=== PATIENT | female | born 1940 | race Caucasian/White ===

== ENCOUNTER 2017-02-16 08:54 | Outpatient (CLI) | payer MEDICARE, OTHER ==
--- NOTE | 2017-02-16 11:53 | CT ---
CT CHEST WITH IV CONTRAST: HISTORY: Renal cell carcinoma. Evaluate for metastatic disease. Restaging. COMPARISON: 10/25/2015 and 01/29/2017 FINDINGS: The lungs remain somewhat hyperinflated. Pleural scarring at the right apex is similar in appearanc e to the previous exam. There is calcification of the arterial structures. No focal parenchymal summer ng mass, pleural fluid, or mediastinal adenopathy is evident. A small hiatal hernia is apparent on the current study. A right retroperitoneal mass is partially visualized, better detailed on recent CT abdomen exam. IMPRESSION: 1. Stable CT appearance of the chest without evidence of thoracic metastatic disease. 2. Atherosclerosis. POS: [facility]
[2017-02-16] MEDS ORDERED: Iopamidol 370 76% 100 ML VIAL ONE (14:07)
--- NOTE | 2017-02-16 14:25 | NM ---
WHOLE BODY BONE SCAN: COMPARISON: None. HISTORY: Malignant neoplasm of the urothelial tract. History of colon cancer and kidney cancer. TECHNIQUE: A whole body bone scan was performed after administration of 33 mCi of Technetium 99m MDP. FINDINGS: The right kidney has been removed. Normal uptake is seen in the left kidney and the urinary bladder . No suspicious uptake is seen within the skeleton to suggest osseous metastatic disease. Uptake in t he feet is likely secondary to degenerative change. IMPRESSION: No evidence of osseous metastatic disease. POS: [facility]
== END 2017-02-16 08:55 | disposition home or self-care (01) ==
LOC: CT 08:54
PROVIDERS: ATTEND Urology
DX: C79.10 Secondary malignant neoplasm of unspecified urinary organs (principal); I70.90 Unspecified atherosclerosis
CPT/HCPCS: 71260; 78306; 82565; A9503

== ENCOUNTER 2017-05-01 09:09 | Outpatient (CLI) | payer MEDICARE, OTHER ==
--- NOTE | 2017-05-01 13:33 | CT ---
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 COMPARISON: Prior exam dated 01/29/[address] of the abdomen and pelvis dated 09/14/15. CONTRAST: 60 cc of Isovue 370 was administered for the examination due to a diminished GFR of 36. FINDINGS: The large heterogeneous recurrent soft tissue mass within the superior aspect of the right renal bed has increased in size and now measures 6.8 x 7.6 x 9 cm where it previously measured 4.1 x 4.3 x 6.7 cm. There is worsening invasion along the posterior aspect of the right hepatic lobe with some edema tous changes seen within the posterior aspect of the right hepatic lobe. There is also worsening inv asion of the right adrenal gland. There is worsening lymphadenopathy seen within the retroperitoneum with a new enlarged lymph node see n adjacent to the posterior aspect of the IVC on image 37 of series 2. There is a new retrocrural ly mph node measuring 1.1 cm on image 30 of series 2. There is a new enlarged paraaortic lymph node see n within the retrocrural region measuring 9 cm. There is an enlarged paraesophageal lymph node measu ring 1 cm. There is an enlarged paraaortic lymph node seen anterior to the aorta on image 41 of serie s 2 measuring 1.3 cm. The lung bases are clear. There is a small hiatal hernia. The spleen, pancreas, left adrenal gland, and left kidney appear within normal limits. There is mode rate calcification involving the abdominopelvic vasculature. Visualized bladder appears within normal limits. The rectum and perirectal soft tissues are unremark able. The uterus is surgically absent. There is no evidence of small bowel obstruction. No suspici ous osteolytic or osteoblastic lesion is identified. IMPRESSION: 1. Enlargement of the recurrent soft tissue mass within the superior aspect of the right renal bed w ith localized invasion to the right adrenal gland and right posterior hepatic lobe. 2. Worsening lymphadenopathy of the retroperitoneum and lower posterior mediastinum. POS: [facility]
== END 2017-05-01 09:10 | disposition home or self-care (01) ==
LOC: CT 09:09
PROVIDERS: ATTEND Internal Medicine Hematology & Oncology
DX: C66.1 Malignant neoplasm of right ureter (principal); C67.0 Malignant neoplasm of trigone of bladder; E03.8 Other specified hypothyroidism; R59.0 Localized enlarged lymph nodes; E27.9 Disorder of adrenal gland, unspecified; R16.0 Hepatomegaly, not elsewhere classified
CPT/HCPCS: 74177

== ENCOUNTER 2017-06-15 08:03 | Outpatient (CLI) | payer MEDICARE, OTHER ==
--- NOTE | 2017-06-15 09:51 | CT ---
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 Prior cho lecystectomy, appendectomy, and hysterectomy. COMPARISON: 05/01/17. FINDINGS: The recurrent soft tissue mass in the right renal fossa is somewhat less well defined and appears to have decreased minimally in size when compared to the prior study. It now measures approximately 5.1 x 6 x 7.4 cm where it previously measured 6.8 x 7.6 x 9.1 cm. A right-sided retrocrural node has in creased in size minimally now measuring 1.1 cm where it previously measured 1.0 cm. A retrocaval nod e at the level of some right-sided surgical clips now measures 2.1 cm where it previously measured 1. 4 cm. A preaortic node below the level of the renal arteries now measures 1.1 cm where it previously measured 1.4 cm. Stable small hiatal hernia. No evidence of liver metastasis. No abscess or abnor mal fluid collection within the abdomen or pelvis. No evidence for bone metastasis. IMPRESSION: Mixed response since the prior exam of 05/01/17. The large recurrent mass in the renal fossa has defi nitely decreased in size along with at least 1 retroperitoneal lymph node. Two retroperitoneal lymph nodes, however, show definite increase in size. No other significant acute process. POS: [facility]
[2017-06-15] MEDS ORDERED: Iopamidol 370 76% 100 ML VIAL ONE (16:19)
== END 2017-06-15 08:04 | disposition home or self-care (01) ==
LOC: CT 08:03
PROVIDERS: ATTEND Internal Medicine Hematology & Oncology
DX: C66.1 Malignant neoplasm of right ureter (principal); C67.0 Malignant neoplasm of trigone of bladder
CPT/HCPCS: 74177

== ENCOUNTER 2017-09-07 07:14 | Outpatient (CLI) | payer MEDICARE, OTHER ==
--- NOTE | 2017-09-07 09:31 | CT ---
CT ABDOMEN AND PELVIS: HISTORY: A 76-year-old with a history of neoplasm of ureter. FINDINGS: Contrast-enhanced CT images abdomen and pelvis obtained on 09/07/17. Comparison is made to previous e xam from 06/15/17. Contrast-enhanced CT images of abdomen and pelvis demonstrate again a sliding-type large hiatal herni a. The liver demonstrates no evidence of obvious masses. The gallbladder appears to have been surgi bruce removed. The spleen and pancreas are unremarkable. Retrocrural previously noted right-sided l ymph node has resolved. The right renal space mass previously measured more than 5 cm and has also c ompletely resolved. The retrocaval lymph node has significantly decreased in size decreasing from ap proximately 2.1 cm down to 5.3 mm. Previously noted periaortic lymph node measuring 1.1 cm has resol leonardo. There is no significant evidence of enlarging lymph nodes. Atherosclerotic calcification of the abdominal aorta is seen. The left kidney is unremarkable. The urinary bladder demonstrates no evidence of obvious masses. IMPRESSION: 1. Resolved previously present renal space mass. 2. Significant reduction or resolution of previously noted retrocrural and retrocaval and periaortic lymphadenopathy. POS: [facility]
[2017-09-07] MEDS ORDERED: Iopamidol 370 76% 100 ML VIAL ONE (15:49)
== END 2017-09-07 07:15 | disposition home or self-care (01) ==
LOC: CT 07:14
PROVIDERS: ATTEND Internal Medicine Hematology & Oncology
DX: C66.1 Malignant neoplasm of right ureter (principal); R59.0 Localized enlarged lymph nodes; C67.0 Malignant neoplasm of trigone of bladder; E03.8 Other specified hypothyroidism
CPT/HCPCS: 74177

== ENCOUNTER 2017-11-30 07:49 | Outpatient (CLI) | payer MEDICARE, OTHER ==
[2017-11-30] MEDS ORDERED: Iopamidol 370 76% 100 ML VIAL ONE (13:01)
== END 2017-11-30 07:50 | disposition home or self-care (01) ==
LOC: BICCT 07:49
PROVIDERS: ATTEND Internal Medicine Hematology & Oncology
DX: C66.1 Malignant neoplasm of right ureter (principal); K76.0 Fatty (change of) liver, not elsewhere classified; K57.30 Diverticulosis of large intestine without perforation or abscess without bleeding; Z90.5 Acquired absence of kidney; Z90.79 Acquired absence of other genital organ(s)
CPT/HCPCS: 74177

== ENCOUNTER 2018-03-02 06:47 | Outpatient (CLI) | payer MEDICARE, OTHER ==
--- NOTE | 2018-03-02 09:43 | CT ---
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 History of kidney can cer with right nephrectomy. Comparison: 03-06-16, 09-07-17 FINDINGS: Post-surgical changes related to right nephrectomy are again noted. The lung bases, liver, spleen, pancreas, bilateral adrenal glands, and left kidney demonstrate a cosme sly normal nonenhanced CT appearance. There is evidence of hysterectomy. Urinary bladder is incompletely distended but otherwise grossly no rmal in appearance. There is colonic diverticulosis. Small hiatal hernia is noted with fundus of the stomach again above the level of the hemidiaphragms. Vascular calcifications are present in the abdominal aorta and involving the iliac arteries. No enlarged lymph nodes are seen by CT size criteria. There are a few mildly prominent retrocrural an d right periaortic lymph nodes on prior study from 06-15-17 which have decreased in size during the in terval on 09-07-17 and are almost imperceptible on this exam. Mild degenerative changes are seen in the spine. There has been no other interval change from prior e xams. IMPRESSION: 1. Post-surgical changes related to right nephrectomy. 2. No enlarged lymph nodes are seen on this nonenhanced CT scan by CT size criteria. 3. Hiatal hernia. 4. Colonic diverticulosis. 5. Hysterectomy. 6. Vascular calcifications. POS: [facility]
== END 2018-03-02 06:48 | disposition home or self-care (01) ==
LOC: CT 06:47
PROVIDERS: ATTEND Internal Medicine Hematology & Oncology
DX: C66.1 Malignant neoplasm of right ureter (principal); C67.0 Malignant neoplasm of trigone of bladder; K44.9 Diaphragmatic hernia without obstruction or gangrene; K57.30 Diverticulosis of large intestine without perforation or abscess without bleeding; I70.90 Unspecified atherosclerosis; Z90.710 Acquired absence of both cervix and uterus; Z90.5 Acquired absence of kidney
CPT/HCPCS: 74176; 82565

== ENCOUNTER 2018-08-31 08:41 | Outpatient (CLI) | payer MEDICARE, OTHER ==
--- NOTE | 2018-08-31 10:51 | CT ---
EXAM: Abdomen and pelvic CT scan with contrast: HISTORY: Cancer of right ureter and trigone of the bladder, prior right nephrectomy and chemotherapy COMPARISON: 09/07/2017 FINDINGS: Moderate size hiatal hernia. The visualized lung bases are clear. Liver: Unremarkable. Gallbladder:Unremarkable. Pancreas:Unremarkable Spleen:Unremarkable. Adrenal glands:Unremarkable. Kidneys:Status post right nephrectomy. Developing lymph node in the left periaortic region at the level of the left renal artery measuring 1.2 cm, on the prior study this node measured 0.3 cm in size.No solid or cystic renal mass. No evidence for bowel obstruction. No CT evidence for acute appendicitis. The urinary bladder is unremarkable. No abscess or abnormal fluid collection. IMPRESSION: Developing abnormally enlarged left periaortic lymph node at the level of the left renal artery since the prior exam Stable hiatal hernia. Status post right nephrectomy. No evidence for other significant acute process.
[2018-08-31] MEDS ORDERED: ISOVUE-370 76%-LOCM 1 ML ONE (16:50)
== END 2018-08-31 08:42 | disposition home or self-care (01) ==
LOC: BICCT 08:41
PROVIDERS: ATTEND Internal Medicine Hematology & Oncology
DX: C67.0 Malignant neoplasm of trigone of bladder (principal); C66.1 Malignant neoplasm of right ureter; E03.8 Other specified hypothyroidism; R59.0 Localized enlarged lymph nodes; K44.9 Diaphragmatic hernia without obstruction or gangrene; Z90.49 Acquired absence of other specified parts of digestive tract
CPT/HCPCS: 74177; 82565

== ENCOUNTER 2019-02-21 07:10 | Outpatient (CLI) | payer MEDICARE, OTHER ==
--- NOTE | 2019-02-21 10:23 | CT ---
CT OF THE CHEST AND ABDOMEN AND PELVIS WITH IV CONTRAST: INDICATION: History of renal malignancy. CONTRAST: 30 cc of Isovue 370 due to a GFR of 31. COMPARISON: Prior CT of the abdomen and pelvis with contrast dated 08/31/[address] of the chest dated 02/16/2017 . FINDINGS: CHEST: There is mild scattered emphysema. No suspicious pulmonary nodule is evident. No enlarged lymph nod es are present. There is a small hiatal hernia. ABDOMEN: No focal hepatic lesion is evident. Postsurgical change of right nephrectomy is stable-appearing. A drenal glands, pancreas, and spleen appear within normal limits. Previously seen enlarged left paraa ortic lymph node is significantly reduced in size previously measuring 1.2 cm and now measuring 6 mm. No new lymphadenopathy is evident. There are prominent vascular calcifications involving the abdom inal aorta. PELVIS: Large and small bowel appear within normal limits. Reproductive structures are surgically absent. B ladder, rectum, and perirectal soft tissues are unremarkable appearing. No suspicious osteolytic or osteoblastic lesion is evident. There is diffuse osteopenia. IMPRESSION: 1. Findings consistent with response to therapy. Enlarged left paraaortic lymph node seen, seen crystal r the origin of the left renal artery, has significantly decreased in size now measuring 6 mm. Previ ously it measured 12 mm. There is no evidence to suggest recurrence within the right renal bed. 2. Stable emphysema. 3. Small hiatal hernia. 4. Diffuse osteopenia. POS: [facility]
[2019-02-21] MEDS ORDERED: ISOVUE-370 76%-LOCM 1 ML ONE (12:29)
== END 2019-02-21 07:11 | disposition home or self-care (01) ==
LOC: BICCT 07:10
PROVIDERS: ATTEND Internal Medicine Hematology & Oncology
DX: C66.1 Malignant neoplasm of right ureter (principal); C67.0 Malignant neoplasm of trigone of bladder; E03.8 Other specified hypothyroidism; R59.0 Localized enlarged lymph nodes; J43.9 Emphysema, unspecified; K44.9 Diaphragmatic hernia without obstruction or gangrene; M85.80 Other specified disorders of bone density and structure, unspecified site
CPT/HCPCS: 71260; 74177; 82565; Q9966

== ENCOUNTER 2019-11-07 07:22 | Outpatient (CLI) | payer MEDICARE, OTHER ==
--- NOTE | 2019-11-07 10:28 | CT ---
ABDOMEN AND PELVIC CT SCAN WITH IV CONTRAST: HISTORY: Bladder cancer, cancer of ureter and right kidney with prior nephrectomy. COMPARISON: 01/25/2019. FINDINGS: The lung bases are clear. Moderate-sized hiatal hernia. Status post cholecystectomy. The liver, pa ncreas, spleen, and adrenal glands appear unremarkable. Status post right nephrectomy. Normal-appea ring left kidney without renal calculus or stone. Very small faint 0.5 cm low-density focus in the l eft kidney too small to characterize but statistically a small cyst. Previously noted left periaorti c lymph node now measures approximately 0.5 cm in short axis. No abscess or abnormal fluid collectio n. No evidence for new adenopathy. Colonic diverticulosis without acute diverticulitis.. Visualize d urinary bladder appears unremarkable. IMPRESSION: Previously noted left periaortic lymph node now measures approximately 0.5 cm in size short axis. Mo derate hiatal hernia. Other findings as above. No evidence for metastasis. POS: [facility]
[2019-11-07] MEDS ORDERED: Iopamidol-370 76% 500 ML 1 ML ONE (12:44)
== END 2019-11-07 07:23 | disposition home or self-care (01) ==
LOC: BICCT 07:22
PROVIDERS: ATTEND Internal Medicine Hematology & Oncology
DX: C66.1 Malignant neoplasm of right ureter (principal); C67.0 Malignant neoplasm of trigone of bladder; E03.8 Other specified hypothyroidism; K44.9 Diaphragmatic hernia without obstruction or gangrene; N28.89 Other specified disorders of kidney and ureter; N28.1 Cyst of kidney, acquired; K57.30 Diverticulosis of large intestine without perforation or abscess without bleeding; Z90.5 Acquired absence of kidney; Z90.49 Acquired absence of other specified parts of digestive tract
CPT/HCPCS: 74177; 82565; Q9967

== ENCOUNTER 2020-05-23 08:21 | Outpatient (CLI) | payer MEDICARE, OTHER ==
--- NOTE | 2020-05-23 10:32 | CT ---
CT OF THE CHEST, ABDOMEN, AND PELVIS: DATE: 05/23/2020. COMPARISON: 02/21/2019 CT of chest abdomen and pelvis, 11/07/2019 CT of the abdomen and pelvis. TECHNIQUE: Axial CT imaging at 5 mm intervals from the thoracic inlet through the pubic symphysis with intraveno us and oral contrast. Coronal and sagittal reformatted imaging obtained. FINDINGS: No lymphadenopathy is noted within the axillary, hilar, or mediastinal regions. Coronary arterial lisa cification is present. There is a small sliding-type hiatal hernia. No significant pleural, pericardial, or mediastinal fluid. There is coronary arterial calcification and atherosclerotic calcification of the aortic arch/descend ing thoracic aorta. No suspicious pulmonary parenchymal mass lesion/nodule is appreciated on either side. Osseous structures of the chest demonstrate no worrisome lytic or blastic bone lesions. No free intraperitoneal air or fluid. No focal liver lesion identified. The pancreas is grossly unremarkable. Bilateral adrenal glands and the left kidney appear unremarkable. The spleen is unremarkable. The right kidney is surgically absent. There are a few scattered colonic diverticula in the sigmoid region. No evidence for bowel obstructio n or inflammatory change. No inguinal lymphadenopathy or pelvic sidewall adenopathy. There are postoperative clips in the right hemipelvis. No enlarged lymph nodes are noted within the retroperitoneum. The previously noted enlarged lymph node in the left periaortic region is normal on this examination, measuring in the 5 m m range. There is multifocal scattered atherosclerotic calcification of the abdominal aorta and its branches w ith scattered significant atherosclerotic calcification involving the arterial structures of the pelvis. The urinary bladder is poorly assessed on this examination. There is a vague area of hyperdensity in the region of the inferior most posterior aspect of the urinary bladder suggesting possible calcification. Osseous structures of the abdomen/pelvis demonstrate no worrisome lytic or blastic bone lesions. IMPRESSION: No evidence for metastatic disease is appreciated. Please see above discussion. Transcribed Date/Time: 05/23/2020 10:57 AM
== END 2020-05-23 08:22 | disposition home or self-care (01) ==
LOC: BICCT 08:21
PROVIDERS: ATTEND Internal Medicine Hematology & Oncology
DX: C66.1 Malignant neoplasm of right ureter (principal); C67.0 Malignant neoplasm of trigone of bladder
CPT/HCPCS: 71260; 74177; 82565

== ENCOUNTER 2021-06-04 10:35 | Outpatient (CLI) | payer MEDICARE, OTHER | END 2021-06-04 10:36 | disposition home or self-care (01) | LOC: CT 10:35 | PROVIDERS: ATTEND Internal Medicine Hematology & Oncology | DX: C66.1 Malignant neoplasm of right ureter (principal); C67.0 Malignant neoplasm of trigone of bladder; E03.8 Other specified hypothyroidism; J98.4 Other disorders of lung; K76.0 Fatty (change of) liver, not elsewhere classified; N32.89 Other specified disorders of bladder; Z90.5 Acquired absence of kidney; Z90.710 Acquired absence of both cervix and uterus | CPT/HCPCS: 71260; 74177; 82565 ==

== ENCOUNTER 2021-07-02 10:30 | Outpatient (CLI) | payer MEDICARE, OTHER ==
[2021-07-02 11:39] LABS: Bilirubin Neg (Negative); Blood, Urine 10 (Negative); Clarity Slightly Cloudy (Clear); Glucose, Urine (Dipstick) Normal (Negative); Ketone, Urine Negative (Negative); Leukocyte Negative (Negative); Nitrite Negative (Negative); Protein, Urine (Dipstick) Negative (Neg-Trace); Urobilinogen Normal mg/dL (Less than 2)
[2021-07-02 11:45] LABS: Hemoglobin 15.5 g/dL (12.0-15.5); Mean Corpuscular HGB CONC 32.4 g/dL (32.0-36.0); Mean Corpuscular Hemoglobin 30.6 pg (27.0-33.0); Mean Corpuscular Volume 94.3 fl (81.6-98.3); Mean Platelet Volume 10.5 fl (7.4-10.4); Platelet Count 201 10x3/uL (150-450); RBC Distribution Width 12.7 % (11.5-14.5); Red Blood Cell (RBC) Count 5.07 10x6/uL (3.90-5.03); White Blood Cell (WBC) Count 7.9 10x3/uL (3.5-10.5)
[2021-07-02 11:56] LABS: Bacteria/HPF 2+ HPF (None Seen)
[2021-07-02 12:04] LABS: INR-International Normal Ratio 0.9; PTT 26.3 sec (22.0-33.0); Prothrombin Time 10.3 sec (9.5-12.1)
[2021-07-02 12:15] LABS: Anion Gap 14 mmol/L (10-20); BUN (Urea Nitrogen) 18 mg/dL (9.8-20.1); Calc. Creatinine Clearance 0 mL/min (70-130); Calcium 9.6 mg/dL (7.8-10.44); Carbon Dioxide 28 mmol/L (23-31); Chloride 99 mmol/L (98-107); Glucose 113 mg/dL (83-110); Potassium 4.8 mmol/L (3.5-5.1); Sodium 136 mmol/L (136-145)
[2021-07-02 23:08] LABS: SARS-CoV-2 PCR by NAA Not Detected (NotDetected)
== END 2021-07-02 10:31 | disposition home or self-care (01) ==
LOC: LABBT 10:30
PROVIDERS: ATTEND Urology
DX: Z01.818 Encounter for other preprocedural examination (principal); C79.10 Secondary malignant neoplasm of unspecified urinary organs; C64.1 Malignant neoplasm of right kidney, except renal pelvis; Z20.822 Contact with and (suspected) exposure to COVID-19
CPT/HCPCS: 80048; 81001; 85027; 85610; 85730; 87086; 93005; U0003; U0005; 93010

== ENCOUNTER 2021-07-05 07:45 | Day surgery (SDC) | payer MEDICARE, OTHER ==
[2021-06-26 11:27] VITALS: BMI 25.0
[2021-07-05] MEDS ORDERED: mitoMYcin 40 MG in Sterile Water 20 ML IVPB SCH (10:00)
[2021-07-05] MEDS ORDERED: B & O ONE (11:13)
[2021-07-05] MEDS ORDERED: Fentanyl 250 MCG/5 ML VIAL ONE (11:16)
[2021-07-05] MEDS ORDERED: Levofloxacin 500 mg/D5W 100 ml Premix Bag ONE (11:17)
[2021-07-05] MEDS ORDERED: PROPOFOL 200 MG/20 ML VIAL ONE (11:25)
[2021-07-05] MEDS ORDERED: Ondansetron PF 4 MG/2 ML Vial ONE (11:25)
[2021-07-05] MEDS ORDERED: Lidocaine 1% PF 5 ML VIAL ONE (11:25)
[2021-07-05] MEDS ORDERED: Dexamethasone 20 MG/5 ML VIAL ONE (11:25)
[2021-07-05] MEDS ORDERED: Rocuronium Bromide 10 MG/ML (10ML VIAL) ONE (11:25)
[2021-07-05] MEDS ORDERED: SUGAMMADEX SODIUM 200 MG/2 ML VIAL ONE (11:58)
== END 2021-07-05 14:58 | disposition home or self-care (01) ==
LOC: SDC 07:45
PROVIDERS: ATTEND Urology
PROC: 0TBC8ZZ Excision of Bladder Neck, Via Natural or Artificial Opening Endoscopic (ICD-10-PCS; principal; 2021-07-05)
DX: C67.5 Malignant neoplasm of bladder neck (principal); K21.9 Gastro-esophageal reflux disease without esophagitis; E78.00 Pure hypercholesterolemia, unspecified; E07.9 Disorder of thyroid, unspecified; F17.210 Nicotine dependence, cigarettes, uncomplicated; Z79.82 Long term (current) use of aspirin; Z79.899 Other long term (current) drug therapy; Z88.5 Allergy status to narcotic agent; Z90.5 Acquired absence of kidney; Z90.6 Acquired absence of other parts of urinary tract
CPT/HCPCS: 52500; J9280; 88305; J1100; J1956; J2405; J2704; J3010

== ENCOUNTER 2021-10-03 10:07 | Emergency (ER) | payer MEDICARE, OTHER ==
[2021-10-03 10:54] LABS: #Eosinphils 0.1 thou/uL (0.0-0.7); #Lymphocytes 1.9 thou/uL (1.20-3.40); #Monocytes 0.9 thou/uL (0.11-0.59); #Neutrophils 9.2 thou/uL (1.40-6.50); %Basophils 0.4 % (0.0-1.0); %Eosinophils 0.7 % (0.0-10.0); %Lymphocytes 15.3 % (21.0-51.0); %Monocytes 7.5 % (0.0-10.0); %Neutrophils 76.1 % (42.0-75.0); Mean Corpuscular HGB CONC 33.5 g/dL (32.0-36.0); Mean Corpuscular Hemoglobin 32.2 pg (27.0-31.0); Mean Corpuscular Volume 96.3 fL (78.0-98.0); Mean Platelet Volume 7.8 fL (7.4-10.4); Platelet Count 202 thou/uL (130-400); RBC Distribution Width 11.9 % (11.5-14.5); Red Blood Cell (RBC) Count 4.96 mill/uL (4.20-5.40); White Blood Cell (WBC) Count 12.1 thou/uL (4.8-10.8)
[2021-10-03] MEDS ORDERED: Lidocaine Viscous Sol 2% 15 ml UD Cup ONE (10:55)
[2021-10-03] MEDS ORDERED: Mag-Al 1200 mg/1200 mg/30 ML UDCUP ONE (10:55)
[2021-10-03 11:39] LABS: Albumin 4.4 g/dL (3.4-4.8)
[2021-10-03 11:40] LABS: Potassium 4.5 mmol/L (3.5-5.1); Sodium 136 mmol/L (136-145)
[2021-10-03 11:41] LABS: Calcium 9.1 mg/dL (7.8-10.44); Chloride 101 mmol/L (98-107)
[2021-10-03 11:42] LABS: Globulin 3.3 g/dL (2.4-3.5); Glucose 168 mg/dL (83-110); Protein, Total 7.7 g/dL (5.8-8.1)
[2021-10-03 11:43] LABS: Anion Gap 18 mmol/L (10-20); Carbon Dioxide 22 mmol/L (23-31)
[2021-10-03 11:44] LABS: Bilirubin, Total 0.7 mg/dL (0.2-1.2)
[2021-10-03 11:45] LABS: Alkaline Phosphatase 65 U/L (40-110); Calc. Creatinine Clearance 0 mL/min (70-130)
[2021-10-03 11:46] LABS: BUN (Urea Nitrogen) 18 mg/dL (9.8-20.1)
[2021-10-03 11:47] LABS: AST (SGOT) 21 U/L (5-34)
[2021-10-03 11:48] LABS: ALT (SGPT) 19 U/L (8-55); Lipase 65 U/L (8-78)
[2021-10-03 13:48] LABS: Troponin I 0.011 ng/mL (< 0.028)
== END 2021-10-03 14:58 | disposition home or self-care (01) ==
LOC: ERS 10:07
DX: N28.9 Disorder of kidney and ureter, unspecified (principal); R07.9 Chest pain, unspecified; F17.210 Nicotine dependence, cigarettes, uncomplicated; Z79.899 Other long term (current) drug therapy
CPT/HCPCS: 36415; 71046; 80053; 83690; 84484; 85025; 93005

== ENCOUNTER 2022-06-03 10:31 | Outpatient (CLI) | payer MEDICARE, OTHER ==
[~2022-06-03 10:31] MED LIST: Iopamidol 370 76% 100 ML VIAL ONE
== END 2022-06-03 10:32 | disposition home or self-care (01) ==
LOC: CT 10:31
PROVIDERS: ATTEND Internal Medicine Hematology & Oncology
DX: C67.0 Malignant neoplasm of trigone of bladder (principal); C66.1 Malignant neoplasm of right ureter; K83.8 Other specified diseases of biliary tract; Z90.49 Acquired absence of other specified parts of digestive tract
CPT/HCPCS: 71260; 74177; 82565; Q9967

== ENCOUNTER 2022-10-06 12:29 | Outpatient (CLI) | payer MEDICARE, OTHER | END 2022-10-06 12:30 | disposition home or self-care (01) | LOC: ULT 12:29 | PROVIDERS: ATTEND Family Medicine | DX: G45.9 Transient cerebral ischemic attack, unspecified (principal); I08.3 Combined rheumatic disorders of mitral, aortic and tricuspid valves | CPT/HCPCS: 93306; 93880 ==

== ENCOUNTER 2023-01-23 07:53 | Day surgery (SDC) | payer MEDICARE, OTHER ==
[2023-01-23] MEDS ORDERED: Glucagon 1 MG/ML KIT ONE (08:41)
[2023-01-23 09:19] LABS: #Eosinphils 0.1 thou/uL (0.0-0.7); #Monocytes 0.6 thou/uL (0.11-0.59); %Basophils 0.5 % (0.0-1.0); %Eosinophils 1.1 % (0.0-10.0); %Lymphocytes 26.4 % (21.0-51.0); %Monocytes 9.1 % (0.0-10.0); %Neutrophils 62.7 % (42.0-75.0); Hematocrit 43.5 % (36.0-47.0); Hemoglobin 14.3 g/dL (12.0-16.0); Mean Corpuscular HGB CONC 32.9 g/dL (32.0-36.0); Mean Corpuscular Hemoglobin 32.1 pg (27.0-31.0); Mean Corpuscular Volume 97.8 fl (78.0-98.0); Mean Platelet Volume 9.5 fL (7.4-10.4); Platelet Count 172 10x3/uL (130-400); RBC Distribution Width 13.4 % (11.5-14.5); Red Blood Cell (RBC) Count 4.45 mill/uL (4.20-5.40); White Blood Cell (WBC) Count 6.4 10x3/uL (4.8-10.8)
[2023-01-23 09:32] LABS: INR-International Normal Ratio 0.9; PTT 37.7 sec (22.9-36.1); Prothrombin Time 12.8 sec (12.0-14.7)
[2023-01-23 09:43] LABS: ALT (SGPT) 8 U/L (8-55); AST (SGOT) 17 U/L (5-34); Albumin 3.7 g/dL (3.4-4.8); Alkaline Phosphatase 47 U/L (40-110); Anion Gap 17 mmol/L (10-20); BUN (Urea Nitrogen) 15 mg/dL (9.8-20.1); Bilirubin, Total 0.6 mg/dL (0.2-1.2); Calc. Creatinine Clearance 0 mL/min (70-130); Calcium 9.6 mg/dL (7.8-10.44); Carbon Dioxide 18 mmol/L (23-31); Chloride 106 mmol/L (98-107); Estimated GFR 46; Globulin 3.4 g/dL (2.4-3.5); Glucose 91 mg/dL (83-110); Potassium 4.4 mmol/L (3.5-5.1); Protein, Total 7.1 g/dL (5.8-8.1); Sodium 137 mmol/L (136-145)
[2023-01-23 10:08] LABS: Troponin I Less than 0.010 ng/mL (< 0.028)
[2023-01-23] MEDS ORDERED: fentaNYL 50 mcg/mL 1 mL Vial ONE (11:12)
[2023-01-23] MEDS ORDERED: Famotidine/PF 20 mg/2ml Vial ONE (11:13)
[2023-01-23] MEDS ORDERED: PROPOFOL 200 MG/20 ML VIAL ONE (11:33)
[2023-01-23] MEDS ORDERED: Ondansetron PF 4 MG/2 ML Vial ONE (11:33)
[2023-01-23] MEDS ORDERED: Dexamethasone 20 MG/5 ML VIAL ONE (11:33)
[2023-01-23] MEDS ORDERED: Lidocaine 1% PF 5 ML VIAL ONE (11:33)
[2023-01-23] MEDS ORDERED: Succinylcholine 200 MG/10 ml SYRINGE FS ONE (11:33)
[2023-01-23] MEDS ORDERED: Promethazine HCl 25 MG/ML VIAL IM PRN (11:57)
== END 2023-01-23 13:52 | disposition home or self-care (01) ==
LOC: ERS 07:53 → SDC 10:29
PROVIDERS: ATTEND Internal Medicine Gastroenterology
PROC: 0DC38ZZ Extirpation of Matter from Lower Esophagus, Via Natural or Artificial Opening Endoscopic (ICD-10-PCS; principal; 2023-01-23)
DX: T18.128A Food in esophagus causing other injury, initial encounter (principal); E11.9 Type 2 diabetes mellitus without complications; I10 Essential (primary) hypertension; K21.9 Gastro-esophageal reflux disease without esophagitis; E07.9 Disorder of thyroid, unspecified; E78.5 Hyperlipidemia, unspecified; F17.210 Nicotine dependence, cigarettes, uncomplicated; Z90.5 Acquired absence of kidney; Z88.5 Allergy status to narcotic agent
CPT/HCPCS: 43247; 71045; 80053; 84484; 85025; 85610; 85730; J1611; J3010; J1100; J2405; J2704; S0028

== ENCOUNTER 2023-06-30 07:48 | Outpatient (CLI) | payer MEDICARE, OTHER | END 2023-06-30 07:49 | disposition home or self-care (01) | LOC: CT 07:48 | PROVIDERS: ATTEND Internal Medicine Hematology & Oncology | DX: Z12.2 Encounter for screening for malignant neoplasm of respiratory organs (principal); Z87.891 Personal history of nicotine dependence; C66.1 Malignant neoplasm of right ureter; R92.1 Mammographic calcification found on diagnostic imaging of breast; M85.9 Disorder of bone density and structure, unspecified; R91.1 Solitary pulmonary nodule | CPT/HCPCS: 71250; 81001; 87086; 88112 ==

== ENCOUNTER 2023-07-15 10:43 | Outpatient (CLI) | payer MEDICARE, OTHER ==
[~2023-07-15 10:43] MED LIST changes: -Iopamidol 370 76% 100 ML VIAL ONE; +Iopamidol-370 76% 500 ML MDV (1 ML CHARGE) ONE
== END 2023-07-15 10:44 | disposition home or self-care (01) ==
LOC: BICCT 10:43
PROVIDERS: ATTEND Urology
DX: C67.9 Malignant neoplasm of bladder, unspecified (principal); J18.1 Lobar pneumonia, unspecified organism
CPT/HCPCS: 71046; 74178; 82565; Q9967